=== PATIENT | male | born 1990 | race Caucasian/White ===

== ENCOUNTER 2022-02-08 20:41 | Emergency (ER) | payer OTHER ==
[~2022-02-08] VITALS: Ht 182.9 cm; Wt 99.8 kg
[2022-02-08 22:11] VITALS: BP 143/72
[2022-02-08] MEDS ORDERED: DICY10CA37 PO (22:47)
[2022-02-08] MEDS ORDERED: PRED50TA PO (22:47)
[2022-02-08] MEDS ORDERED: predniSONE 20 MG TABLET ONE (22:58)
[2022-02-08] MEDS ORDERED: predniSONE 50 MG TABLET PO ONE (23:00)
== END 2022-02-08 23:03 | disposition home or self-care (01) ==
LOC: ER 20:52
DX: L50.9 Urticaria, unspecified (principal); K52.9 Noninfective gastroenteritis and colitis, unspecified; Z79.899 Other long term (current) drug therapy
CPT/HCPCS: 99283; J7512

== ENCOUNTER 2022-02-16 16:07 | Emergency (ER) | payer OTHER ==
[~2022-02-16] VITALS: Ht 182.9 cm; Wt 99.8 kg
[~2022-02-16 16:07] MED LIST: DICY10CA37 PO; PRED50TA PO
[2022-02-16 16:35] VITALS: BP 129/78
[2022-02-16] MEDS ORDERED: FAMO40TA7 PO (18:13)
[2022-02-16] MEDS ORDERED: PRED50TA PO (18:13)
[2022-02-16] MEDS ORDERED: DIPH25CA83 PO (18:13)
== END 2022-02-16 18:29 | disposition home or self-care (01) ==
LOC: ER 16:15
DX: L50.9 Urticaria, unspecified (principal); L29.9 Pruritus, unspecified; Z98.890 Other specified postprocedural states; Z79.899 Other long term (current) drug therapy